=== PATIENT | male | born 1960 | race Caucasian/White ===

== ENCOUNTER 2022-01-03 05:03 | Emergency (ER) | payer SELFPAY ==
[2022-01-03] MEDS ORDERED: Ondansetron 4 MG/2 ML SDV IVPUSH ONE (05:31)
[2022-01-03] MEDS ORDERED: HYDROmorphone 1 MG/ML Syringe IVPUSH STA (05:31)
[2022-01-03] MEDS ORDERED: Sodium Chloride 0.9% 1,000 ML IV SCH ×2 (05:45→07:45)
[2022-01-03] MEDS ORDERED: Sodium Chloride 0.9% 10 ML Syringe FLUSH ONE (06:50)
[2022-01-03] MEDS ORDERED: Iopamidol 612 MG/ML 100 ML Bottle IVPUSH ONE (06:50)
[2022-01-03] MEDS ORDERED: HYDROmorphone 1 MG/ML Syringe IVPUSH ONE ×2 (06:51→07:31)
[2022-01-03] MEDS ORDERED: Insulin Regular, Human 100 Units/ML 3 ML Vial IV STA (06:55)
[2022-01-03] MEDS ORDERED: Heparin Sodium 5,000 Units/ML Vial IVPUSH ONE (07:21)
[2022-01-03] MEDS ORDERED: Heparin Sodium/D5W 25,000 UNITS/500 ML BAG IV SCH (07:30)
[2022-01-03] MEDS ORDERED: Piperacillin/Tazobactam 4.5 GM in Sodium Chloride 0.9% 100 ML IV ONE (07:45)
== END 2022-01-03 08:44 ==
LOC: JD.ED 05:03
DX: I82.890 Acute embolism and thrombosis of other specified veins (principal); K55.019 Acute (reversible) ischemia of small intestine, extent unspecified; E78.00 Pure hypercholesterolemia, unspecified; I10 Essential (primary) hypertension; E11.9 Type 2 diabetes mellitus without complications; E66.9 Obesity, unspecified; Z68.33 Body mass index [BMI] 33.0-33.9, adult; Z79.899 Other long term (current) drug therapy; Z79.84 Long term (current) use of oral hypoglycemic drugs; Z20.822 Contact with and (suspected) exposure to COVID-19
CPT/HCPCS: 36415; 74177; 80053; 81001; 82947; 83605; 83690; 85007; 85027; 87635; 96361; 96365; 96368; 96375; 96376; 99285; J1170; J1644; J1815; J2405; J2543; J3490; J7030; Q9967; U0002